=== PATIENT | female | born 1955 | race Two or more races ===

== ENCOUNTER 2017-12-07 06:24 | Emergency (ER) | payer OTHER ==
[~2017-12-07] VITALS: Ht 162.6 cm; Wt 68.0 kg
[2017-12-07 06:32] VITALS: Ht 162.6 cm; Wt 68.0 kg
[2017-12-07 07:56] VITALS: BP 146/83
== END 2017-12-07 07:56 | disposition home or self-care (01) ==
LOC: ED 06:24
DX: J02.9 Acute pharyngitis, unspecified (principal)